=== PATIENT | female | born 1950 | race Caucasian/White ===

== ENCOUNTER 2021-12-20 12:53 | Outpatient (CLI) | payer MEDICARE, OTHER ==
--- NOTE | 2022-01-03 14:50 | Mammography Report ---
BILATERAL DIGITAL SCREENING MAMMOGRAM 3D/2D: 12/20/2021 CLINICAL: Family history of breast cancer. Routine screening. Comparison is made to exams dated: 07/08/2019 ultrasound biopsy, 07/08/2019 mammogram, and 06/07/2019 mammogram - [facility]. There are scattered fibroglandular elements in both breasts. There are mole markers on the left breast. No significant masses, calcifications, or other findings are seen in either breast. There has been no significant interval change. IMPRESSION: NEGATIVE There is no mammographic evidence of malignancy. A 1 year screening mammogram is recommended. Based on the Tyrer Cuzick model (a risk assessment model) the patients lifetime risk is 10.9% and he r 10 year risk is 8.2%. According to the ACR, ACS, and NCCN guidelines, an annual breast MRI exam lesia ng with mammogram is recommended if the patients lifetime risk is 20% or greater. This exam was interpreted at Station ID: [id number]. NOTE: For mammograms, a report in lay terms will be sent to the patient. Approximately 15% of breast malignancies will not be visualized mammographically. In the management of a palpable breast mass, a negative mammogram must not discourage biopsy of a clinically suspicious lesion. Electronically Signed By: Negrito burton/mary:01/03/2022 08:00:11 ACR BI-RADS Category 1: Negative 3341F PARENCHYMAL PATTERN: (A) - The breast(s) demonstrate(s) scattered fibroglandular densities. BI-RADS CATEGORY: (1) - 1 RECOMMENDATION: (ANNUAL) - Recommend routine annual screening mammography. [id number] 1 year screening LATERALITY: (B)
== END 2021-12-20 12:54 | disposition home or self-care (01) ==
LOC: DI.N 12:53
DX: Z12.31 Encounter for screening mammogram for malignant neoplasm of breast (principal); Z80.3 Family history of malignant neoplasm of breast

== ENCOUNTER 2021-12-26 12:18 | Outpatient (CLI) | payer MEDICARE, OTHER ==
--- NOTE | 2021-12-26 18:24 | DEXA Report ---
PROCEDURE: Dexa Spine and/or Hip INDICATIONS: POST MENOPAUSAL TECHNIQUE: Dual energy x-ray absorptiometry (DXA) was performed on a [employer] System. Regions measur ed are the AP Spine, femoral neck, and if needed forearm. COMPARISON: None. FINDINGS: Lumbar Spine: Bone Mineral Density 0.922 g/cm/cm,T score -2.2, osteopenia Left Hip: Bone Mineral Density 0.803 g/cm/cm,T score -1.6, osteopenia Left Femoral Neck: Bone Mineral Density 0.709 g/cm/cm, T score -2.4, osteopenia (T score greater or equal to -1.0: NORMAL) (T score from -1.1 to -2.4: OSTEOPENIA) (T score less than or equal to -2.5 to: OSTEOPOROSIS) Impression: Osteopenia Patients with diagnosis of osteoporosis or osteopenia should have regular bone mineral density assess ment. For those eligible for Medicare, routine testing is allowed once every 2 years. Testing frequ ency can be increased for patients who have rapidly progressing disease or for those who are receivin g medical therapy to restore bone mass. Reviewed by: Fredrick Taylor MD on 12/26/2021 5:23 PM SARAH Approved by: Fredrick Taylor MD on 12/26/2021 5:23 PM SARAH Station ID: [id number]
== END 2021-12-26 12:19 | disposition home or self-care (01) ==
LOC: DI 12:18
PROVIDERS: ATTEND Internal Medicine
DX: M85.89 Other specified disorders of bone density and structure, multiple sites (principal)

== ENCOUNTER 2022-01-03 20:22 | Outpatient (CLI) | payer MEDICARE, OTHER | END 2022-01-03 20:23 | disposition EMS.NT | LOC: EMS 20:22 | DX: S09.90XA Unspecified injury of head, initial encounter (principal); W01.198A Fall on same level from slipping, tripping and stumbling with subsequent striking against other object, initial encounter; Y93.K1 Activity, walking an animal; Y92.480 Sidewalk as the place of occurrence of the external cause ==

== ENCOUNTER 2022-04-22 15:00 | Inpatient (IN) | payer MEDICARE, OTHER ==
[2022-04-22 15:33] LABS: BASOPHILS # (AUTO) 0.1 10^3/uL (0.0-0.1); BASOPHILS % (AUTO) 0.3 %; EOSINOPHILS # (AUTO) 0.1 10^3/uL (0.0-0.7); EOSINOPHILS % (AUTO) 0.3 %; HCT - HEMATOCRIT 35.1 % (37.0-47.0); HGB - HEMOGLOBIN 11.5 g/dL (12.0-16.0); LYMPHOCYTES # (AUTO) 1.7 10^3/uL (1.5-3.5); MEAN CORPUSCULAR HEMOGLOBIN 29.7 pg (27.0-31.0); MEAN CORPUSCULAR HGB CONC 32.8 g/dL (32.0-36.0); MEAN CORPUSCULAR VOLUME 90.7 fL (81.0-99.0); MEAN PLATELET VOLUME 10.3 fL (7.9-10.8); MONOCYTES % (AUTO) 6.7 %; NEUTROPHILS # (AUTO) 12.2 10^3/uL (1.5-6.6); NEUTROPHILS % (AUTO) 81.4 %; PLT - PLATELET COUNT 261 10^3/uL (130-450); RED BLOOD COUNT 3.87 10^6/uL (4.20-5.40); RED CELL DISTRIBUTION WIDTH 12.7 % (12.0-15.0)
[2022-04-22 15:48] LABS: ALBUMIN 4.5 g/dL (3.2-5.5); ALBUMIN/GLOBULIN RATIO 1.5 (1.0-2.2); BILIRUBIN,TOTAL 0.9 mg/dL (0.2-1.0); CALCIUM 10.1 mg/dL (8.5-10.3); CREATININE 0.7 mg/dL (0.4-1.0); POTASSIUM 4.2 mmol/L (3.5-5.0); TOTAL PROTEIN 7.5 g/dL (6.7-8.2)
[2022-04-22] MEDS ORDERED: ACETAMINOPHEN 325 MG TABLET PO STA (19:45)
[2022-04-22 21:02] LABS: BILIRUBIN,URINE NEGATIVE (NEGATIVE); GLUCOSE, URINE (UA) NEGATIVE (NEGATIVE); KETONES,URINE (UA) >=80 mg/dL (NEGATIVE); LEUKOCYTE ESTERASE, URINE SMALL (NEGATIVE); NITRITE,URINE POSITIVE (NEGATIVE); OCCULT BLOOD,URINE SMALL (NEGATIVE); PH,URINE 5.5 PH (5.0-7.5); PROTEIN,URINE NEGATIVE (NEGATIVE); UROBILINOGEN,URINE 0.2 (NORMAL) E.U./dL (NORMAL)
[2022-04-22 21:03] LABS: CLARITY,URINE HAZY (CLEAR)
[2022-04-22 21:12] LABS: BACTERIA,URINE Many /HPF (None Seen); MUCUS,URINE Few Strands; SQUAMOUS EPITHELIAL CELL,UR MOD Squamous (<= Few)
[2022-04-22] MEDS ORDERED: SODIUM CHLORIDE 0.9% 1,000 ML IV STA (22:22)
[2022-04-22] MEDS ORDERED: cefTRIAXone 1 GM in SODIUM CHLORIDE 0.9% MINIBAG 100 ML IV STA (22:26)
[2022-04-22] MEDS ORDERED: cefTRIAXone 1 GM VIAL ONE (22:32)
--- NOTE | 2022-04-22 22:40 | ED Physician Documentation ---
History of Present Illness - Stated complaint Stated Complaint: LT SIDE PX/JAW PX - Chief complaint Chief Complaint: Abd Pain - History obtained from History obtained from: Patient - Additonal information Additional information: 72-year-old woman with past medical history of ovarian cysts Presents with gradual onset left lower and suprapubic abdominal pain that is nonradiating over the past couple of days, constant, associated with fever with T-max of 101.6 at home last night also with urinary frequency. currently pain is 2/10, improved with tylenol. Denies back pain, vomiting, diarrhea. denies blood in stool. Review of Systems Ten Systems: 10 systems reviewed and negative Constitutional: reports: Fever, Chills, Myalgias, Fatigue Cardiac: denies: Chest pain / pressure Respiratory: denies: Dyspnea GI: reports: Abdominal Pain, Nausea. denies: Vomiting : reports: Frequency PD PAST MEDICAL HISTORY - Present Medications Home Medications: Ambulatory Orders Medication Instructions Recorded Confirmed No Known Home Medications 04/22/22 04/22/22 - Allergies Allergies/Adverse Reactions: Allergies Allergy/AdvReac Type Severity Reaction Status Date / Time acetaminophen [From Vicodin] Allergy Unknown Verified 04/22/22 15:13 butorphanol [From Stadol] Allergy Hallucinati Verified 04/22/22 15:13 ons codeine Allergy Unknown Verified 04/22/22 15:13 hydrocodone [From Vicodin] Allergy Unknown Verified 04/22/22 15:13 minocycline Allergy Rash Verified 04/22/22 15:13 nitrofurantoin Allergy Rash Verified 04/22/22 15:13 [From Macrodantin] PD ED PE NORMAL - Vitals Vital signs reviewed: Yes - General General: Alert and oriented X 3, No acute distress, Well developed/nourished - HEENT HEENT: Atraumatic, PERRL, EOMI, Moist mucous membranes - Neck Neck: Supple, no meningeal sign - Cardiac Cardiac: RRR - Respiratory Respiratory: No respiratory distress, Clear bilaterally - Abdomen Abdomen: Other (LLQ and suprapubic ttp. otherwise ntnd) - Back Back: No CVA TTP - Derm Derm: Normal color, Warm and dry - Extremities Extremities: No deformity - Neuro Neuro: Alert and oriented X 3, No motor deficit, No sensory deficit - Psych Psych: Normal mood, Normal affect Results - Vitals Vitals: Vital Signs - 24 hr 04/22/22 04/22/22 04/22/22 15:04 20:38 22:00 Temperature 36 C L 38.3 C H Heart Rate 79 95 Respiratory 16 16 16 Rate Blood Pressure 108/54 L 123/44 L O2 Saturation 100 100 04/22/22 04/22/22 04/23/22 22:49 23:56 01:04 Temperature 37.1 C Heart Rate 78 Respiratory 16 15 16 Rate Blood Pressure 114/52 L O2 Saturation 100 04/23/22 01:20 Temperature Heart Rate 75 Respiratory 16 Rate Blood Pressure O2 Saturation 97 Oxygen O2 Source Room air - Labs Labs: Laboratory Tests 04/22/22 04/22/22 04/22/22 15:28 15:28 20:43 WBC 15.0 H RBC 3.87 L Hgb 11.5 L Hct 35.1 L MCV 90.7 MCH 29.7 MCHC 32.8 RDW 12.7 Plt Count 261 MPV 10.3 Neut # (Auto) 12.2 H Lymph # (Auto) 1.7 [place] # (Auto) 1.0 Eos # (Auto) 0.1 Baso # (Auto) 0.1 Absolute Nucleated RBC 0.00 Nucleated RBC % 0.0 Sodium 140 Potassium 4.2 Chloride 103 Carbon Dioxide 28 Anion Gap 9.0 BUN 17 Creatinine 0.7 Estimated GFR (MDRD) 82 L Glucose 112 H Lactic Acid Calcium 10.1 Total Bilirubin 0.9 AST 26 ALT 20 Alkaline Phosphatase 64 Total Protein 7.5 Albumin 4.5 Globulin 3.0 Albumin/Globulin Ratio 1.5 Lipase 32 Urine Color YELLOW Urine Clarity HAZY Urine pH 5.5 Ur Specific [place] >=1.030 H Urine Protein NEGATIVE Urine Glucose (UA) NEGATIVE Urine Ketones >=80 H Urine Occult Blood SMALL H Urine Nitrite POSITIVE H Urine Bilirubin NEGATIVE Urine Urobilinogen 0.2 (NORMAL) Ur Leukocyte Esterase SMALL H Urine RBC 6-10 H Urine WBC 11-25 H Ur Squamous Epith Cells MOD Squamous H Urine Bacteria Many H Urine Mucus Few Strands Ur Microscopic Review INDICATED Urine Culture Comments NOT INDICATED 04/22/22 22:40 WBC RBC Hgb Hct MCV MCH MCHC RDW Plt Count MPV Neut # (Auto) Lymph # (Auto) [place] # (Auto) Eos # (Auto) Baso # (Auto) Absolute Nucleated RBC Nucleated RBC % Sodium Potassium Chloride Carbon Dioxide Anion Gap BUN Creatinine Estimated GFR (MDRD) Glucose Lactic Acid 0.8 Calcium Total Bilirubin AST ALT Alkaline Phosphatase Total Protein Albumin Globulin Albumin/Globulin Ratio Lipase Urine Color Urine Clarity Urine pH Ur Specific [place] Urine Protein Urine Glucose (UA) Urine Ketones Urine Occult Blood Urine Nitrite Urine Bilirubin Urine Urobilinogen Ur Leukocyte Esterase Urine RBC Urine WBC Ur Squamous Epith Cells Urine Bacteria Urine Mucus Ur Microscopic Review Urine Culture Comments PD MEDICAL DECISION MAKING - ED course ED course: 72-year-old woman with past medical history of ovarian cysts Presents with gradual onset left lower and suprapubic abdominal pain that is nonradiating over the past couple of days, constant, associated with fever with T-max of 1-1.6 at home last night also with urinary frequency. Denies back pain, vomiting, diarrhea. denies blood in stool. Febrile in ED with elevated WBC, u/a nitrite positive. Likely urosepsis, however she is tender in LLQ and endorsing recent history of constipation. Will obtain lactic acid for risk stratification, CT AP to eval for diverticulitis vs kidney stones. d/w Dr. Samuels, surgery chief projectionist - due to staffing shortages we are unable to admit the patient, therefore will sign out to oncoming emergency physician at 7am for possible perc drainage with IR in the morning versus transfer to outside facility for perc drainage.
[2022-04-23] MEDS ORDERED: iohexoL-300 100 ML VIAL ONE (00:25)
--- NOTE | 2022-04-23 02:24 | CT Report ---
PROCEDURE: ABDOMEN/PELVIS W INDICATIONS: LLQ pain CONTRAST: Omni 300 100ml TECHNIQUE: After the administration of intravenous contrast, 5 mm thick sections acquired from the diaphragms to the symphysis. 5 mm thick coronal and sagittal reformats were acquired. For radiation dose reducti on, the following was used: automated exposure control, adjustment of mA and/or kV according to chantelle ent size. COMPARISON: None. FINDINGS: Image quality: Excellent. Lung bases:There is minimal dependent atelectasis. Heart: Heart is normal in size. ABDOMEN: Liver: No mass lesion. Gallbladder: Within normal limits without calcified gallstones. Biliary ducts: No biliary ductal dilatation. Pancreas: Unremarkable. Spleen: Normal in size. Adrenal Glands: No adrenal nodules. Kidneys and Ureters:There is mild dilatation of the renal collecting systems bilaterally without hyd roureter. Stomach and Bowel: Stomach and small bowel loops are normal in caliber and wall thickness. There is colonic diverticulosis with associated diverticular and segmental colonic wall thickening in the sigm oid colon consistent with acute diverticulitis. There is an associated loculated fluid collection alexys suring 4.0 x 3.2 cm medial to the sigmoid colon consistent with a diverticular abscess. The collectio n is contiguous with the posterior wall of the bladder which is mildly thickened. No macroscopic free air. Appendix is normal in appearance. Peritoneum:There is trace free fluid in the pelvis. No free air. Ventral Wall: No hernia. Abdominal Nodes: No retroperitoneal or mesenteric adenopathy by size criteria. Vessels: Aorta and inferior vena cava are normal in size. PELVIS: Pelvic Organs: Unremarkable. Bladder:There is mild thickening of the posterior bladder wall which is contiguous with a diverticul ar abscess collection. No intraluminal gas demonstrated within the urinary bladder. Pelvic Nodes: No enlarged lymph nodes. Miscellaneous: No inguinal hernias are seen. Bones: Visualized osseous structures demonstrate no suspicious focal lesions. IMPRESSION: 1. Acute diverticulitis of the sigmoid colon with an associated diverticular abscess. No macroscopic free air. 2. Abscess collection is contiguous with the posterior wall of the bladder which is mildly thickened. Patient may be at risk for development of an associated fistula. No intraluminal gas demonstrated wi thin the bladder. 3. Mild dilatation of the bilateral renal collecting systems without hydroureter. The findings may re flect sequelae of reactive changes on the distal ureters. No obstructing stone visualized. Reviewed by: Frandy Diamond MD on 04/23/2022 2:22 AM PST Approved by: Frandy Diamond MD on 04/23/2022 2:22 AM PST Station ID: [id number]
[2022-04-23] MEDS ORDERED: metroNIDAZOLE 500 MG/100 ML 500 MG/100 ML BAG IV ONE (02:40)
[2022-04-23] MEDS ORDERED: CIPROFLOXACIN 400 MG/200 ML 400 MG/200 ML BAG IV STA (02:40)
[2022-04-23] MEDS ORDERED: iohexoL-300 100 ML VIAL IVP ONE (05:53)
[2022-04-23] MEDS ORDERED: MORPHINE 2 MG/ML CARPUJECT IVP STA (07:08)
[2022-04-23 07:48] LABS: INR 1.3 (0.8-1.2); PT - PROTHROMBIN TIME 14.8 secs (9.9-12.6)
[2022-04-23] MEDS ORDERED: KETOROLAC 15 MG/ML VIAL IVP STA (11:05)
[2022-04-23] MEDS ORDERED: SODIUM CHLORIDE 0.9% 1,000 ML IV STA (11:05)
--- NOTE | 2022-04-23 11:11 | ED Physician Documentation ---
ED Addendum - Addendum Addendum: 04/23/22 11:[address] Coker, radiologist, who does interventional radiology. He looked at the images for the patient and did not see a viable window for percutaneous drainage and the size of the fluid collection was borderline amenable to a pigtail catheter. He did not see drainage as an option at this point. He suggested antibiotics IV and repeat scanning in a day or 2 if not improving well to see if its more approachable. I talked with Dr. Huff who is on for surgery. She will come and see the patient in mid to the hospital as the patient is still having quite considerable tenderness to palpation and percussion and rebound tenderness on my exam. The patient know will be hospitalized here it would be health. Diagnoses: 1. Lower abdominal pain with peritoneal signs 2. Diverticulitis with local perforation.
[2022-04-23] MEDS ORDERED: SODIUM CHLORIDE FLUSH 0.9% 10 ML SYRINGE IVP PRN (12:15)
[2022-04-23] MEDS ORDERED: oxyCODONE 5 MG TABLET PO PRN (12:15)
[2022-04-23] MEDS ORDERED: PROCHLORPERAZINE 10 MG/2 ML VIAL IVP PRN (12:15)
[2022-04-23] MEDS ORDERED: ONDANSETRON 4 MG/2 ML VIAL IVP PRN (12:15)
[2022-04-23] MEDS ORDERED: HYDROmorphone 0.5 MG/0.5 ML SYRINGE IVP PRN (12:15)
[2022-04-23] MEDS ORDERED: KETOROLAC 15 MG/ML VIAL IVP PRN (12:22)
[2022-04-23] MEDS: metroNIDAZOLE 500 MG/100 ML 500 MG/100 ML BAG IV SCH ×2 (12:43→21:06)
[2022-04-23] MEDS: CIPROFLOXACIN 400 MG/200 ML 400 MG/200 ML BAG IV SCH ×2 (12:44→21:06)
[2022-04-23] MEDS: ACETAMINOPHEN 325 MG TABLET PO SCH ×3 (14:02→21:03)
--- NOTE | 2022-04-23 14:48 | SURGERY HX AND PHYSICAL(T) ---
Surgical History & Physical - Chief Complaint/HPI Chief Complaint: abdominal pain History of Present Illness: This is a 72 y/o F with a PMH of PCOS. She states she's had suprapubic and left lower quadrant abdominal pain which have slowly worsened over the last two weeks. The pain has acutely worsened in the last couple of days with more pain which is sharp and does not radiate. Her pain is worsened before and during bowel movements, but improves after bowel movements. She has also started having fevers and urinary frequency. She endorses nausea, but denies vomiting. This overall worsening prompted the patient to seek medical attention. In our ED, UA reveals UTI, culture pending. CT scan deomstrates sigmoid diverticulitis with a small, developing abscess medial to the sigmoid colon. For this, she is being admitted. At the time of my evaluation, the patient is resting comfortably. She denies any nausea, fevers, chills, ROY, SOA, or chest pain. She endorses continued abdominal pain, mostly in the left lower quadrant. - PMH/PSH/Social Hx Does the pt have a hx of MRSA?: No Neurological History: None Eyes, Ears, Nose, Throat: None Cardiovascular: None Respiratory: None Skin: None Endocrine/Autoimmune: None Gastrointestinal: None TELECOMMUNICATOR: None, Ovarian cysts Is Patient ?: No Urinary: None Musculoskeletal: None Blood Disorders: None Psychiatric: None General: Colonoscopy (no previous), Other (tubal ligation) Smoking Status: Never smoker Does the pt drink ETOH?: No Does the pt have substance abuse?: No - Family Hx Family Hx: Other (mom- breast cancer, diverticulitis requiring ostomy; father- metastatic adrenal cancer) - Home Meds and Allergies Home Medications: No Known Home Medications 04/22/22 Allergies/Adverse Reactions: Allergies Allergy/AdvReac Type Severity Reaction Status Date / Time acetaminophen [From Vicodin] Allergy Unknown Verified 04/22/22 15:13 butorphanol [From Stadol] Allergy Hallucinati Verified 04/22/22 15:13 ons codeine Allergy Unknown Verified 04/22/22 15:13 hydrocodone [From Vicodin] Allergy Unknown Verified 04/22/22 15:13 minocycline Allergy Rash Verified 04/22/22 15:13 nitrofurantoin Allergy Rash Verified 04/22/22 15:13 [From Macrodantin] - Review of Systems Constitutional: Other (Negative except for HPI and PMH.) - Vital Signs Heart Rate: 71 Blood Pressure: 103/50 Temperature: 37.2 C Respiratory Rate: 19 O2 Saturation: 100 Weight (kg): 56.699 kg Height: 1.56 m - Physical Exam General Appearance: positive: No acute distress, Alert Eyes Bilatera: positive: Normal inspection, PERRL, EOMI ENT: positive: ENT inspection nml Neck: positive: Nml inspection, No JVD, Trachea midline Respiratory: positive: Chest non-tender, No respiratory distress Cardiovascular: positive: Regular rate & rhythm, No murmur Peripheral Pulses: positive: 2+ Abdomen: positive: No distention, Tenderness (suprapubic <<L LQ, otherwise non tender), Guarding (voluntary in LLQ). negative: Rebound Skin: positive: Color nml Extremities: positive: Non-tender, Full ROM Neurologic/Psychiatric: positive: Oriented x3 - Patient Review Patient Review: Problems were reviewed with the patient during this visit. Medications were reviewed with the patient during this visit. Allergies were reviewed this patient during this visit. Pertinent Tests Reviewed: All pertitent test for this patient were reviewed. - Assessment & Plan Assessment and Plan: 72 y/o F with acute diverticulitis with abscess. - History, physicial exam, labs, and CT consistent with this diagnosis. I personally reviewed the images and report from the study done early this AM. 4cm pericolonic abscess. There is no significant free fluid and no free air. Imaging discussed with IR who did not feel it was amenable to drainage at this time. - Plan to admit with IV abx and CLD until pain improving. Then adat and transtion to PO meds. If not improving, plan to repeat imaging, reconsider IR drainage. - Once acute episode of diverticulitis has resolved, the patient will need a CE (at least 6 wk after resolution of symptoms). She has not had one previously. - PO/IV pain meds, nausea meds prn - patient requesting f/u with PCP and election watcher (lost pessary) after discharge. DVT ppx: SCD's Code status: full code Patient stable. Admitted to floor.
[2022-04-23] MEDS: SODIUM CHLORIDE FLUSH 0.9% 10 ML SYRINGE IVP SCH (18:01)
[2022-04-24] MEDS: ACETAMINOPHEN 325 MG TABLET PO SCH ×6 (00:09→21:25)
[2022-04-24] MEDS: SODIUM CHLORIDE FLUSH 0.9% 10 ML SYRINGE IVP SCH ×3 (00:09→16:52)
[2022-04-24 05:14] LABS: HGB - HEMOGLOBIN 9.1 g/dL (12.0-16.0); MEAN CORPUSCULAR HEMOGLOBIN 29.4 pg (27.0-31.0); MEAN CORPUSCULAR HGB CONC 32.5 g/dL (32.0-36.0); MEAN CORPUSCULAR VOLUME 90.3 fL (81.0-99.0); MEAN PLATELET VOLUME 10.5 fL (7.9-10.8); RED BLOOD COUNT 3.1 10^6/uL (4.20-5.40); RED CELL DISTRIBUTION WIDTH 12.7 % (12.0-15.0); WHITE BLOOD COUNT 9.4 x10^3/uL (4.8-10.8)
[2022-04-24 05:23] LABS: CALCIUM 8.7 mg/dL (8.5-10.3); CREATININE 0.7 mg/dL (0.4-1.0); POTASSIUM 3.3 mmol/L (3.5-5.0)
[2022-04-24] MEDS ORDERED: POTASSIUM CHLORIDE 20 MEQ/15 ML UDC PO ONE (07:26)
--- NOTE | 2022-04-24 08:06 | PROVIDER PROGRESS NOTE ---
Subjective - General Admit Date: 04/23/22 - Review of Systems General: negative: Fever, Chills Pulmonary: negative: Shortness of breath Cardiovascular: negative: Chest pain Gastrointestinal: negative: Nausea, Vomiting - Other Other Information/Narrative: Patient states her pain is much better this AM; she refused her AM tylenol "to better feel how I am doing". Tolerating clears. She had some nausea last night which resolved with aromatherapy. No vomiting. No nausea this AM. +void. +BM, soft. No blood in stool. Objective - Patient Data Vital Signs: Vital Signs x48h Temp 04/24/22 05:09 36.8 C Weight: Weight 04/22/22 04/23/22 04/24/22 23:59 23:59 23:59 Weight (kg) 56.699 kg 56.699 kg 58 kg Intake & Output: Intake and Output Totals x24h 04/22/22 04/23/22 04/24/22 23:59 23:59 23:59 Intake Total 1100 2075 Output Total 150 Balance 1100 2075 -150 - Lab Results Lab Results: 04/24/22 04:50 04/24/22 04:50 Other Lab Results: Lab Results x24hrs 04/24/22 04/24/22 04/23/22 Range/Units 04:50 04:50 07:09 WBC 9.4 (4.8-10.8) x10^3/uL RBC 3.10 L (4.20-5.40) 10^6/uL Hgb 9.1 L (12.0-16.0) g/dL Hct 28.0 L (37.0-47.0) % MCV 90.3 (81.0-99.0) fL MCH 29.4 (27.0-31.0) pg MCHC 32.5 (32.0-36.0) g/dL RDW 12.7 (12.0-15.0) % Plt Count 197 (130-450) 10^3/uL MPV 10.5 (7.9-10.8) fL Sodium 137 (135-145) mmol/L Potassium 3.3 L (3.5-5.0) mmol/L Chloride 103 (101-111) mmol/L Carbon Dioxide 26 (21-32) mmol/L Anion Gap 8.0 (6-13) BUN 13 (6-20) mg/dL Creatinine 0.7 (0.4-1.0) mg/dL Estimated GFR (MDRD) 82 L (>89) Glucose 104 H (70-100) mg/dL Calcium 8.7 (8.5-10.3) mg/dL SARS-CoV-2 (PCR) NOT DETECTED - Current Medications Current Medications: Current Medications Generic Name Dose Route Start Last Admin Trade Name Mayra PRN Reason Stop Dose Admin Acetaminophen 650 mg 04/23/22 13:00 04/24/22 05:08 Acetaminophen 325 Mg Tablet PO Not Given Q4HR MARLENY Metronidazole 500 mg in 100 mls @ 100 mls/hr 04/23/22 12:00 04/23/22 22:10 Flagyl 500 Mg/100 Ml IV 04/29/22 23:59 Infused BID MARLENY Infusion Ciprofloxacin 400 mg in 200 mls @ 200 mls/hr 04/23/22 12:00 04/23/22 22:10 Cipro 400 Mg/200 Ml IV 04/29/22 23:59 Infused BID MARLENY Infusion Sodium Chloride 10 ml 04/23/22 17:00 04/24/22 00:09 Sodium Chloride Flush 0.9% 10 Ml Syringe IVP 10 ml 0100,0900,1700 MARLENY Administration - Physical Exam General Appearance: positive: No acute distress, Alert Eyes Bilateral: positive: Normal inspection, PERRL, EOMI ENT: positive: Pharynx nml, No signs of dehydration Neck: positive: No JVD, Trachea midline Respiratory: positive: No respiratory distress, Breath sounds nml. negative: Wheezes Cardiovascular: positive: Regular rate & rhythm Abdomen: positive: No distention, Tenderness (mild LLQ> slight suprapubic, otherwise non tender). negative: Guarding, Rebound Skin: positive: Color nml, No rash Extremities: positive: Non-tender, Full ROM Neurologic/Psychiatric: positive: Oriented x3 Impression/Plan - Problem List Problem List: 72 y/o F with acute diverticulitis with abscess (4cm) on CT 04/23, not amenable to IR drainage at that time. - Improving. VSS, afebrile since admission. Leukocytosis resolved. - Plan to continue IV abx today. Will adat to soft diet. If she is doing well tomorrow, plan to transtion to PO meds. If not improving, plan to repeat imaging, reconsider IR drainage. - Once acute episode of diverticulitis has resolved, the patient will need a CE (at least 6 wk after resolution of symptoms). She has not had one previously. - PO/IV pain meds, nausea meds prn - patient requesting f/u with PCP and senior web services developer (lost pessary) after discharge. DVT ppx: SCD's Code status: full code Patient stable. Admitted to floor.
[2022-04-24] MEDS: metroNIDAZOLE 500 MG/100 ML 500 MG/100 ML BAG IV SCH ×2 (08:40→16:52)
[2022-04-24] MEDS: CIPROFLOXACIN 400 MG/200 ML 400 MG/200 ML BAG IV SCH ×2 (08:40→21:25)
[2022-04-25] MEDS: metroNIDAZOLE 500 MG/100 ML 500 MG/100 ML BAG IV SCH (00:27)
[2022-04-25] MEDS: SODIUM CHLORIDE FLUSH 0.9% 10 ML SYRINGE IVP SCH ×2 (00:27→09:22)
[2022-04-25] MEDS: ACETAMINOPHEN 325 MG TABLET PO SCH ×4 (00:28→13:51)
[2022-04-25 05:29] LABS: CALCIUM 8.6 mg/dL (8.5-10.3); CREATININE 0.8 mg/dL (0.4-1.0)
--- NOTE | 2022-04-25 07:42 | DISCHARGE SUMMARY ---
"Discharge Summary Admit Date: 04/23/22 Discharge Date: 04/25/22 Discharging Provider: Dr. Daniela Samuels Code Status: Attempt Resuscitation Condition at Discharge: Good Discharge Disposition: 01 Home, Self Care - DIAGNOSES Admission Diagnoses: acute diverticulitis with abscess Discharge Diagnoses with Status of Each Condition: acute diverticulitis with abscess, improving - HPI History of Present Illness: This is a 72 y/o F with a PMH of PCOS. She states she's had suprapubic and left lower quadrant abdominal pain which have slowly worsened over the two weeks prior to presentation. The pain has acutely worsened in the two days prior to presentation with more pain which is sharp and does not radiate. Her pain is worsened before and during bowel movements, but improves after bowel movements. She has also started having fevers and urinary frequency. She endorses nausea, but denies vomiting. This overall worsening prompted the patient to seek medical attention. CT scan deomstrates sigmoid diverticulitis with a small, developing abscess medial to the sigmoid colon. For this, she was admitted. - CONSULTS | PROCEDURES Consultations: none Procedures: none - HOSPITAL COURSE Hospital Course: The patient was admitted and started on IV antibiotics. She quickly improved and is able to tolerate a soft diet and oral antibiotics without difficulty. Her pain is nearly resolved and she is having bowel movements without significant discomfort. She is stable for discharge on two weeks oral antibiotics and plan for follow up in one month to schedule f/u colonoscopy. - ALLERGIES Allergies/Adverse Reactions: Allergies Allergy/AdvReac Type Severity Reaction Status Date / Time acetaminophen [From Vicodin] Allergy Unknown Verified 04/22/22 15:13 butorphanol [From Stadol] Allergy Hallucinati Verified 04/22/22 15:13 ons codeine Allergy Unknown Verified 04/22/22 15:13 hydrocodone [From Vicodin] Allergy Unknown Verified 04/22/22 15:13 minocycline Allergy Rash Verified 04/22/22 15:13 nitrofurantoin Allergy Rash Verified 04/22/22 15:13 [From Macrodantin] - MEDICATIONS Home Medications: Ambulatory Orders Medication Instructions Recorded Confirmed No Known Home Medications 04/22/22 04/22/22 - PHYSICAL EXAM AT DISCHARGE General Appearance: positive: No acute distress, Alert Eyes Bilateral: positive: Normal inspection ENT: positive: No signs of dehydration Respiratory: positive: No respiratory distress Cardiovascular: positive: Regular rate & rhythm Peripheral Pulses: positive: 2+ Abdomen: positive: No distention, Tenderness (slight LLQ ttp). negative: Guarding, Rebound Skin: positive: Color nml, No rash Extremities: positive: Non-tender, Full ROM Neurologic/Psychiatric: positive: Oriented x3 - LABS Result Diagrams: 04/24/22 04:50 04/25/22 05:08 - FOLLOW UP Follow Up: Dr. Samuels in one month"
[2022-04-25] MEDS ORDERED: metroNIDAZOLE 250 MG TABLET PO SCH (09:00)
[2022-04-25] MEDS ORDERED: CIPROFLOXACIN 250 MG TABLET PO SCH (09:00)
--- NOTE | 2022-04-25 12:47 | Discharge Plan ---
Discharge Plan Problem Reviewed?: Yes Disposition: Home, Self Care Condition: Good Prescriptions: Ciprofloxacin [Cipro] 500 mg PO BID 14 Days #56 tab metroNIDAZOLE [Flagyl] 500 mg PO BID 14 Days #56 tab Diet: Soft (low fiber) Activity Restrictions: No Restrictions Shower Restrictions: No Driving Restrictions: No Weight Bearing: Full Weight Instruction Topics: Diverticulitis Dc Plan of Treatment: PO abx x 14 days Care Goals: resolution of abscess, symptoms Assessment: marked improvement No Smoking: If you smoke, Please STOP! Call for help. Follow-up with: Josh Katz MD [Primary Care Provider] -
[2022-04-25 13:58] VITALS: BP 126/54
== END 2022-04-25 14:00 | disposition home or self-care (01) | DRG 392 ==
LOC: ED 15:00 → MS2 04-23 12:15
PROVIDERS: ADMIT Surgery; ATTEND Surgery
DX: K57.20 Diverticulitis of large intestine with perforation and abscess without bleeding (principal); R35.0 Frequency of micturition; D72.829 Elevated white blood cell count, unspecified; Z20.822 Contact with and (suspected) exposure to COVID-19; N39.0 Urinary tract infection, site not specified
CPT/HCPCS: 36415; 74177; 80048; 80053; 81001; 83605; 83690; 83735; 85025; 85027; 85610; 87040; 87635; 96365; 96367; 96375; 99284; 99285; A9270; Q9967; 81003; 87086

== ENCOUNTER 2022-07-22 08:00 | Outpatient (CLI) | payer MEDICARE, OTHER ==
[2022-07-23 12:47] LABS: BILIRUBIN,URINE NEGATIVE (NEGATIVE); GLUCOSE, URINE (UA) NEGATIVE (NEGATIVE); KETONES,URINE (UA) NEGATIVE (NEGATIVE); LEUKOCYTE ESTERASE, URINE MODERATE (NEGATIVE); NITRITE,URINE NEGATIVE (NEGATIVE); OCCULT BLOOD,URINE NEGATIVE (NEGATIVE); PH,URINE 5.5 PH (5.0-7.5); PROTEIN,URINE NEGATIVE (NEGATIVE); UROBILINOGEN,URINE 0.2 (NORMAL) E.U./dL (NORMAL)
[2022-07-23 12:58] LABS: CLARITY,URINE SL. CLOUDY (CLEAR); RBC,URINE 0-5 /HPF (0-5)
[2022-07-23 12:59] LABS: BACTERIA,URINE Moderate /HPF (None Seen); CRYSTALS,URINE 11-25 Ca Oxalate /LPF; SQUAMOUS EPITHELIAL CELL,UR MOD Squamous (<= Few)
== END 2022-07-23 23:59 | disposition home or self-care (01) ==
LOC: LAB.WC 08:00
PROVIDERS: ATTEND Obstetrics & Gynecology
DX: R30.0 Dysuria (principal)
CPT/HCPCS: 81001; 81002; 87086

== ENCOUNTER 2022-08-27 07:22 | Day surgery (SDC) | payer MEDICARE, OTHER ==
[2022-08-27] MEDS ORDERED: LACTATED RINGERS 1,000 ML IV ONE ×2 (07:25→09:56)
--- NOTE | 2022-08-27 08:09 | ANESTHESIA ---
Pre-Anesthesia VS, & Labs - Diagnosis screening exam - Procedure colonoscopy Vital Signs: Temp Pulse Resp BP Pulse Ox O2 Flow Rate 36.0 C L 79 16 125/69 100 0 08/27/22 07:35 08/27/22 07:35 08/27/22 07:35 08/27/22 07:35 08/27/22 07:35 08/27/22 07:35 Height: 5 ft 1 in Weight (kg): 56.4 kg Body Mass Index: 23.5 BMI Classification: Normal - NPO >8 hours - Is Patient ?: No Home Medications and Allergies Allergies/Adverse Reactions: Allergies Allergy/AdvReac Type Severity Reaction Status Date / Time acetaminophen [From Vicodin] Allergy Unknown Verified 04/22/22 15:13 butorphanol [From Stadol] Allergy Hallucinati Verified 04/22/22 15:13 ons codeine Allergy Unknown Verified 04/22/22 15:13 hydrocodone [From Vicodin] Allergy Unknown Verified 04/22/22 15:13 minocycline Allergy Rash Verified 04/22/22 15:13 nitrofurantoin Allergy Rash Verified 04/22/22 15:13 [From Macrodantin] Anes History & Medical History - Anesthetic History Anesthesia Complications: reports: No previous complications - Medical History Cardiovascular: reports: None Pulmonary: reports: None Gastrointestinal: reports: Diverticulitis Urinary: reports: Incontinence, Other Neuro: reports: None Musculoskeletal: reports: Other Endocrine/Autoimmune: reports: None Blood Disorders: reports: None Skin: reports: None Smoking Status: Never smoker Psychosocial: reports: No issues indicated History of Cancer?: Yes (melanoma) - Surgical History General: Gynecologic: reports: Other Dermatologic: reports: Skin cancer surgery Exam General: Alert, Oriented x3, Cooperative, No acute distress Dental: WNL Mouth Openin Fingerbreadth Neck Mobility: Normal Mallampati classification: I Thyromental Distance: 4-6 cm Mental/Cognitive Status: Alert/Oriented X3, Normal for patient Plan Anesthesia Type: General, Total IV Consent for Procedure(s) Verified and Reviewed: Yes Code Status: Attempt Resuscitation ASA classification: 1-Healthy patient Is this case an emergency?: No
[2022-08-27] MEDS ORDERED: PROPOFOL 500 MG/50 ML 500 MG/50 ML VIAL ONE (09:36)
[2022-08-27 10:21] LABS: CREATININE 0.6 mg/dL (0.4-1.0)
[2022-08-27] MEDS ORDERED: iohexoL-300 100 ML VIAL ONE (11:00)
--- NOTE | 2022-08-27 11:16 | ANESTHESIA POST OP EVALUATION ---
Anesthesia Post Eval - Post Anesthesia Eval Vitals: Last Vital Signs Temp 36.2 C L 08/27/22 10:35 Pulse 59 L 08/27/22 10:35 Resp 16 08/27/22 10:35 BP 105/47 L 08/27/22 10:35 Pulse Ox 100 08/27/22 10:35 O2 Flow Rate 0 08/27/22 07:35 CV Function Including HR & BP: Stable Pain Control: Satisfactory Nausea & Vomiting: Negative Mental Status: Baseline Respiratory Status: Airway Patent Hydration Status: Satisfactory Anesthesia Complications: None
[2022-08-27 12:36] VITALS: BP 139/60
--- NOTE | 2022-08-27 12:56 | CT Report ---
PROCEDURE: ABDOMEN/PELVIS W INDICATIONS: incomplete colonoscopy CONTRAST: 100ml Omnipaque 300 TECHNIQUE: After the administration of rectal and intravenous contrast, 5 mm thick sections acquired from the di aphragms to the symphysis. 5 mm thick coronal and sagittal reformats were acquired. For radiation d ose reduction, the following was used: automated exposure control, adjustment of mA and/or kV accord ing to patient size. COMPARISON: CT abdomen pelvis 04/23/2022 FINDINGS: Visualized lung bases: No pleural effusion. Liver and biliary tree: No suspect focal hepatic lesion. No biliary ductal dilation. Gallbladder: No radiopaque cholelithiasis. Spleen: Unremarkable. Pancreas: Unremarkable. Adrenal glands: Unremarkable. Kidneys and ureters: No hydronephrosis. Gastrointestinal tract: Administered rectal contrast has reached the level of the cecum, and is also visualized within distal and mid small bowel. No evidence of high-grade colonic stricture. The rectum and sigmoid colon are largely decompressed at the time of the exam. Allowing for luminal distention, no definite wall thickening of these segments. Changes of acute diverticulitis present on the previo us exam appear resolved. No definite diverticular abscess visualized. Peritoneal cavity: No free air or substantial free fluid. Bladder: Unremarkable. Pelvic organs: 2.5 cm right adnexal cyst redemonstrated, uterus and ovaries not well evaluated by CT. No definite or highly suspicious features identified. Vasculature: No abdominal aortic aneurysm. Musculoskeletal: Degenerative change of the spine. IMPRESSION: 1. Administered rectal contrast has reached the level of the cecum, and is also visualized within dis wendy and mid small bowel. No evidence of high-grade colonic stricture. 2. Incidental note of a 2.5 cm right adnexal cyst. Uterus and ovaries are not well evaluated by CT. N o highly suspicious findings identified by CT. Per ACR incidental findings guidelines, imaging follow -up is not necessary for this finding however if further imaging is desired/clinically indicated, pel [place] ultrasound could be obtained. Reviewed by: Kyle López MD on 08/27/2022 12:55 PM PDT Approved by: Kyle López MD on 08/27/2022 12:55 PM PDT Station ID: [id number]
[2022-08-27] MEDS ORDERED: iohexoL-300 100 ML VIAL IVP ONE (20:40)
== END 2022-08-27 07:23 | disposition home or self-care (01) ==
LOC: SDS 07:22
PROVIDERS: ATTEND Surgery
DX: Z12.11 Encounter for screening for malignant neoplasm of colon (principal); Z87.19 Personal history of other diseases of the digestive system
CPT/HCPCS: 36415; 74177; 82565; G0104; J7120; Q9967